=== PATIENT | male | born 2000 | race Hispanic/Latino ===

== ENCOUNTER 2021-07-11 20:05 | Emergency (ER) | payer BC ==
--- OUTSIDE RECORDS SUMMARY | 2021-07-11 20:08 | XMS REPORT | Continuity of Care Document ---
:2000 Author Organization [facility] t Address [address] [place] [address] [address] [place] [address] Care Team Providers Name Role Phone Lab, Fam Pob I Attending Clinician Unavailable [employer] Attending Clinician FREEDOM Attending Clinician Unavailable Payers Payer Name Policy Type Policy Number Effective Date Expiration Date S ource Problems This patient has no known problems. Allergies, Adverse Reactions, Alerts Allergy Allergy Status Severity Reaction(s) Onset Inactive Treating Comm ents Source Name Type Date Date Clinician NO KNOWN Drug Active Univers ALLERGIE Class ity of S [facility] Social History Social Habit Start Date Stop Date Quantity Comments Source Exposure to Not sure [facility] SARS-CoV-2 (event) [facility] Sex Assigned At [birth year] [facility] 00:00:00 00:00:00 [facility] Smoking Status Start Date Stop Date Source Unknown if ever smoked [facility] Medications This patient has no known medications. Procedures This patient has no known procedures. Encounters Start End Encounter Admission Attending Care Care Encounter Source Date/Time Date/Time Type Type Clinicians Facility Department ID 2020-11-23 2020-11-23 Laboratory Lab, [facility] Fam Pob I [facility] 1.2. [id number] Univers 07:53:30 08:13:30 Only Nani Johnson [facility] [id number] chastity [facility] [id number] Karl as Devon [id number] [address] 2020-11-23 2020-11-23 Outpatient R FREEDOM [facility] [id number] Univers 08:00:00 08:00:00 NANI ity o [facility] Results This patient has no known results.
--- NOTE | 2021-07-11 23:11 | EDPHYS ---
Physician Documentation [facility] Name: Chico Covington Age: 21 yrs Sex: Male : 2000 Arrival Date: 07/11/2021 Time: 20:35 Bed 12 Private MD: ED Physician Francis Byrd HPI: 07/11 22:45 This 21 yrs old Male presents to ER via Ambulatory with complaints of Hand cp Injury. 22:45 The patient or guardian reports injury, pain. The complaints affect the proximal left cp fifth metacarpal. Context: resulted from using own fist to strike, a table. Onset: The symptoms/episode began/occurred 2-3 weeks ago. Associated signs and symptoms: Pertinent negatives: cyanosis distally, decreased sensation distally. Severity of symptoms: in the emergency department the symptoms are unchanged, despite home interventions. Historical: - Allergies: 21:08 No Known Allergies; ab2 - Home Meds: 21:08 None [Active]; ab2 - PMHx: 21:08 None; ab2 - PSHx: 21:08 None; ab2 - Immunization history:: Adult Immunizations up to date. - Social history:: Smoking status: Reported history of juuling and/or vaping. ROS: 22:50 MS/extremity: Positive for pain, swelling, tenderness, of the left hand and left wrist. cp 22:50 Constitutional: Negative for body aches, chills, fever, poor PO intake. cp 22:50 Respiratory: Negative for cough, shortness of breath, wheezing. 22:50 Abdomen/GI: Negative for abdominal pain, nausea, vomiting, and diarrhea. 22:50 Neuro: Negative for altered mental status, headache, numbness, weakness. 22:50 All other systems are negative. Exam: 22:55 Constitutional: The patient appears in no acute distress, alert, awake, comfortable, cp non-toxic, well developed, well nourished. 22:55 Musculoskeletal/extremity: Extremities: grossly normal except: noted in the base of cp left fifth metacarpal: pain, swelling, tenderness, There is no evidence of decreased ROM, ROM: full active range of motion, in the left hand and left wrist, Perfusion: the extremity is normally perfused throughout, the left hand Sensation intact. Vital Signs: 21:09 BP 125 / 85; Pulse 87; Resp 17; Temp 97.2(TE); Pulse Ox 99% on R/A; Weight 122.47 kg; ab2 Height 5 ft. 10 in. (177.80 cm); Pain 8/10; 22:37 BP 130 / 78 RA Sitting (auto/reg); Pulse 79 MON; Resp 18 S; Temp 98.5(O); Pulse Ox 100% tk1 ; Pain 0/10; 21:09 Body Mass Index 38.74 (122.47 kg, 177.80 cm) ab2 Procedures: 23:20 Splinting: Splint applied to left hand and left wrist using Orthoglass splint, ulna cp gutter type. applied by tech. Examined by me, post splint application: neurovascular intact, Patient tolerated well. MDM: 22:39 Patient medically screened. susy 23:10 Data reviewed: vital signs, nurses notes, radiologic studies, plain films. cp 23:10 Differential diagnosis: dislocation, closed fracture, contusion. Test interpretation: cp by ED physician or midlevel provider: plain radiologic studies. Counseling: I had a detailed discussion with the patient and/or guardian regarding: the historical points, exam findings, and any diagnostic results supporting the discharge/admit diagnosis, radiology results, the need for outpatient follow up, for definitive care, a hand specialist, to return to the emergency department if symptoms worsen or persist or if there are any questions or concerns that arise at home. Response to treatment: the patient's symptoms have markedly improved after treatment, and as a result, I will discharge patient. 07/11 21:10 Order name: XRAY Hand LEFT 3 View [facility] 07/11 21:10 Order name: XRAY Wrist LEFT 3 view [facility] 07/11 23:08 Order name: Splint - Ulnar Gutter: extend to proximal forearm; Complete Time: 23:24 cp Administered Medications: No medications were administered Disposition Summary: 07/11/21 23:10 Discharge Ordered Location: Home cp Problem: new cp Symptoms: have improved cp Condition: Stable cp Diagnosis - Displaced fracture of base of fifth metacarpal bone, left hand, initial encounter cp for closed fracture Followup: cp - With: Rio Garnica MD - When: 2 - 3 days - Reason: Recheck today's complaints Discharge Instructions: - Discharge Summary Sheet cp - Boxer's Fracture cp Forms: - Medication Reconciliation Form cp - Thank You Letter cp - Antibiotic Education cp - Prescription Opioid Use cp Prescriptions: - Ibuprofen 800 mg Oral Tablet - take 1 tablet by ORAL route every 8 hours As needed take with food; 30 tablet; cp Refills: 0, Product Selection Permitted Signatures: Dispatcher [employer] Francis Powell, Francis Valadez MD, cha, PA PA cp Bleininger, Alexis ab2
--- NOTE | 2021-07-11 23:11 | ER ---
Nurse's Notes [facility] Name: Chico Covington Age: 21 yrs Sex: Male : 2000 Arrival Date: 07/11/2021 Time: 20:35 Bed 12 Private MD: Diagnosis: Displaced fracture of base of fifth metacarpal bone, left hand, initial encounter for closed fracture Presentation: 07/11 21:07 Chief complaint: Patient states: "2 or 3 weeks ago I got mad at my video game and I ab2 punched my desk really hard and my hand and wrist have been hurting ever since." Pt c/o left hand and wrist. Coronavirus screen: Vaccine status: Patient reports being unvaccinated. Client denies travel out of the [place] in the last 14 days. At this time, the client does not indicate any symptoms associated with coronavirus-19. Ebola Screen: Patient negative for fever greater than or equal to 101.5 degrees Fahrenheit, and additional compatible Ebola Virus Disease symptoms Patient denies exposure to infectious person. Patient denies travel to an Ebola-affected area in the 21 days before illness onset. No symptoms or risks identified at this time. Initial Sepsis Screen: Does the patient meet any 2 criteria? No. Patient's initial sepsis screen is negative. Does the patient have a suspected source of infection? No. Patient's initial sepsis screen is negative. Risk Assessment: Do you want to hurt yourself or someone else? Patient reports no desire to harm self or others. Onset of symptoms is unknown. 21:07 Method Of Arrival: Ambulatory ab2 21:07 Acuity: YING 4 ab2 Triage Assessment: 21:08 General: Appears in no apparent distress. comfortable, Behavior is calm, cooperative, ab2 appropriate for age. Pain: Complains of pain in left hand Pain currently is 8 out of 10 on a pain scale. Neuro: Level of Consciousness is awake, alert, obeys commands, Oriented to person, place, time, situation, Appropriate for age. Respiratory: Airway is patent Respiratory effort is even, unlabored, Respiratory pattern is regular, symmetrical. Historical: - Allergies: 21:08 No Known Allergies; ab2 - Home Meds: 21:08 None [Active]; ab2 - PMHx: 21:08 None; ab2 - PSHx: 21:08 None; ab2 - Immunization history:: Adult Immunizations up to date. - Social history:: Smoking status: Reported history of juuling and/or vaping. Screenin:37 Abuse screen: Denies threats or abuse. Denies injuries from another. Nutritional tk1 screening: No deficits noted. Tuberculosis screening: No symptoms or risk factors identified. Fall Risk None identified. Assessment: 22:37 General: Appears comfortable, obese, well groomed, well developed, well nourished, tk1 Behavior is calm, cooperative, appropriate for age. Pain: Denies pain. Neuro: No deficits noted. Cardiovascular: No deficits noted. Respiratory: Airway is patent Respiratory effort is even, unlabored, Respiratory pattern is regular, symmetrical. GI: No deficits noted. No signs and/or symptoms were reported involving the gastrointestinal system. : No deficits noted. No signs and/or symptoms were reported regarding the genitourinary system. EENT: No deficits noted. No signs and/or symptoms were reported regarding the EENT system. Derm: No deficits noted. No signs and/or symptoms reported regarding the dermatologic system. Musculoskeletal: Range of motion: limited in MCP of left little finger, MCP of left ring finger, MCP of left middle finger and MCP of left index finger Swelling present in dorsum of left hand Reports pain in left hand with movement. 23:33 Reassessment: D/C per PA order. Discharge/Prescription instructions given to patient. tk1 Verbalized understanding. Vital Signs: 21:09 BP 125 / 85; Pulse 87; Resp 17; Temp 97.2(TE); Pulse Ox 99% on R/A; Weight 122.47 kg; ab2 Height 5 ft. 10 in. (177.80 cm); Pain 8/10; 22:37 BP 130 / 78 RA Sitting (auto/reg); Pulse 79 MON; Resp 18 S; Temp 98.5(O); Pulse Ox 100% tk1 ; Pain 0/10; 21:09 Body Mass Index 38.74 (122.47 kg, 177.80 cm) ab2 ED Course: 20:35 Patient arrived in ED. es 21:08 Triage completed. ab2 21:09 Arm band placed on right wrist. ab2 21:59 XRAY Hand LEFT 3 View In Process Unspecified. EDMS 21:59 XRAY Wrist LEFT 3 view In Process Unspecified. EDMS 22:29 Francis Singh PA is PHCP. cp 22:29 Francis Byrd MD is Attending Physician. cp 22:37 Szuy Munoz is Primary Nurse. tk1 22:37 Patient has correct armband on for positive identification. Bed in low position. Call tk1 light in reach. 22:37 Patient did not have IV access during this emergency room visit. tk1 22:37 No provider procedures requiring assistance completed. tk1 23:09 Rio Garnica MD is Referral Physician. cp 23:24 Orthoglass splint: Ulnar gutter/Boxer splint applied on left forearm. ds4 Administered Medications: No medications were administered Outcome: 22:37 Discharged to home ambulatory. tk1 22:37 Condition: stable 22:37 Discharge instructions given to patient, Instructed on discharge instructions, follow up and referral plans. medication usage, Demonstrated understanding of instructions, follow-up care, medications. 23:10 Discharge ordered by MD. cp 23:38 Patient left the ED. tk1 Signatures: Dispatcher [employer] EDNE Jenny Nova Donovan ds4 Francis Singh PA PA cp Suzy Munoz tk1 Tito Mancuso2
[2021-07-12 04:24] VITALS: BP 130/78; TEMP 98.5; O2SAT 100
--- NOTE | 2021-07-12 08:49 | RAD REPORT ---
EXAM DESCRIPTION: RAD - Wrist Left 3 View - 07/11/2021 9:57 pm CLINICAL HISTORY: Left wrist pain status post injury FINDINGS: A mildly displaced subacute oblique fracture proximal fifth metacarpal which extends intra -articularly. There is a small amount of callus No dislocation
--- NOTE | 2021-07-12 08:50 | RAD REPORT ---
EXAM DESCRIPTION: RAD -Hand Left 3 View - 07/11/2021 9:58 pm CLINICAL HISTORY: Left hand pain status post injury FINDINGS: A mildly displaced subacute oblique fracture proximal fifth metacarpal which extends intra -articularly. There is a small amount of callus No dislocation
== END 2021-07-11 23:38 | disposition home or self-care (01) ==
LOC: ER 20:05
PROC: 2W3DX1Z Immobilization of Left Lower Arm using Splint (ICD-10-PCS; principal; 2021-07-11)
DX: S62.317A Displaced fracture of base of fifth metacarpal bone, left hand, initial encounter for closed fracture (principal); W22.8XXA Striking against or struck by other objects, initial encounter
CPT/HCPCS: 99283

== ENCOUNTER 2022-10-16 14:42 | Emergency (ER) | payer BC ==
--- OUTSIDE RECORDS SUMMARY | 2022-10-16 14:45 | XMS REPORT | Continuity of Care Document ---
:2000 Author Organization [facility] t Address [address] [place] [address] [address] [place] [address] Care Team Providers Name Role Phone SEVERO PUCKETT Attending Clinician Unavailable CORNELIA MEDEL Attending Clinician Unavailable Lab, Adc Fam Pob I Attending Clinician Unavailable Nani Prajapati Attending Clinician NANI LOJA Attending Clinician Unavailable Payers Payer Name Policy Type Policy Number Effective Date Expiration Date S [facility] 2 [id number] 2022 00:00:00 Problems This patient has no known problems. Allergies, Adverse Reactions, Alerts Allergy Allergy Status Severity Reaction(s) Onset Inactive Treating Comm ents Source Name Type Date Date Clinician NO KNOWN Drug Active Univers ALLERGIE Class ity of [facility] Social History Social Habit Start Date Stop Date Quantity Comments Source Exposure to Not sure [facility] SARS-CoV-2 (event) [facility] Sex Assigned At [birth year] [facility] 00:00:00 00:00:00 [facility] Smoking Status Start Date Stop Date Source Unknown if ever smoked [facility] Medications This patient has no known medications. Procedures This patient has no known procedures. Encounters Start End Encounter Admission Attending Care Care Encounter Source Date/Time Date/Time Type Type Clinicians Facility Department ID 2022-11-03 2022-11-03 Outpatient DESTINY PUCKETT [id number] 15:45:00 15:45:00 SEVERO christie 2022-10-16 2022-10-16 Outpatient DESTINY MEDEL [id number] 00:00:00 00:00:00 CORNELIA christie 2020-11-23 2020-11-23 Laboratory Lab, Adc Fam Pob I [facility] 1.2. [id number] Univers 07:53:30 08:13:30 Only Nani Loja [id number] [place] [id number] Karl as Teresitaio [phone] [address] 2020-11-23 2020-11-23 Outpatient R FREEDOM [facility] [id number] [facility] 08:00:00 08:00:00 NANI mor[facility]aya [facility] Results This patient has no known results.
--- NOTE | 2022-10-16 15:14 | RAD REPORT ---
EXAM DESCRIPTION: RAD - Knee Right 3 View - 10/16/2022 3:10 pm CLINICAL HISTORY: PAIN COMPARISON: <Comparisons> TECHNIQUE: Right knee, 3 views. FINDINGS: No fracture, dislocation or periosteal reaction.No joint effusion seen. No joint space kendell rowing. No soft tissue abnormality. Clinical concerns for internal derangement or occult bony injury could be further assessed with MR im aging. IMPRESSION: Negative right knee.
--- NOTE | 2022-10-16 15:24 | ER ---
Nurse's Notes [facility] Name: Chico Covington Age: 22 yrs Sex: Male : 2000 Arrival Date: 10/16/2022 Time: 14:42 Bed IW2 Private MD: Celina Bruce Diagnosis: Pain in right knee Presentation: 10/16 15:05 Chief complaint: Patient states: R knee pain for months. Pain and stiffness this week. ll1 Ebola Screen: Patient denies travel to an Ebola-affected area in the 21 days before illness onset. Initial Sepsis Screen: Does the patient meet any 2 criteria? No. Patient's initial sepsis screen is negative. Does the patient have a suspected source of infection? No. Patient's initial sepsis screen is negative. Risk Assessment: Do you want to hurt yourself or someone else? Patient reports no desire to harm self or others. 15:05 Method Of Arrival: Ambulatory ll1 15:05 Acuity: YING 4 ll1 15:11 Coronavirus screen: Vaccine status: Patient reports being unvaccinated. Client denies ll1 travel out of the [place] in the last 14 days. At this time, the client does not indicate any symptoms associated with coronavirus-19. Onset of symptoms was April 13, 2022. Triage Assessment: 15:13 General: Appears in no apparent distress. Behavior is calm, cooperative, appropriate ll1 for age. Pain: Complains of pain in R knee Quality of pain is described as aching. Musculoskeletal: Circulation, motion, and sensation intact. Capillary refill < 3 seconds. Historical: - Allergies: 15:13 No Known Allergies; ll1 - PMHx: 15:13 None; ll1 - PSHx: 15:13 None; ll1 - Immunization history:: Client reports having NOT received the Covid vaccine. - Social history:: Smoking status: Reported history of juuling and/or vaping. Screenin:42 [facility] ED Fall Risk Assessment (Adult) Score/Fall Risk Level 0 - 2 = Low Risk ll1 Oriented to surroundings, Maintained a safe environment, Educated pt \T\ family on fall prevention, incl call for assistance when getting out of bed, Hourly rounding (assess needs \T\ fall precautionary measures) done. Abuse screen: Denies threats or abuse. Nutritional screening: No deficits noted. Tuberculosis screening: No symptoms or risk factors identified. Assessment: 15:42 Reassessment: No changes from previously documented assessment. Patient and/or family ll1 updated on plan of care and expected duration. Pain level reassessed. Patient is alert, oriented x 3, equal unlabored respirations, skin warm/dry/pink. Vital Signs: 15:11 Pulse 82; Resp 18; Temp 98.1; Pulse Ox 98% ; Weight 136.08 kg; Height 5 ft. 10 in. ; ll1 Pain 3/10; 15:11 Body Mass Index 43.05 (136.08 kg, 177.8 cm) ll1 15:11 Pain Scale: Adult ll1 ED Course: 14:43 Patient arrived in ED. am2 14:43 Celina Bruce is Private Physician. am2 14:43 Nallely Kwan FNP-C is [facility]. kb 14:43 Francis Byrd MD is Attending Physician. kb 15:05 Triage completed. ll1 15:05 Arm band placed on. ll1 15:11 Knee Right 3 View XRAY In Process Unspecified. EDMS 15:42 Patient has correct armband on for positive identification. Bed in low position. Call ll1 light in reach. Cardiac monitoring not applicable on this patient. 15:42 No provider procedures requiring assistance completed. Patient did not have IV access ll1 during this emergency room visit. Administered Medications: No medications were administered Medication: 15:42 VIS not applicable for this client. ll1 Outcome: 15:24 Discharge ordered by . kb 15:42 Discharged to home ambulatory. ll1 15:42 Condition: stable 15:42 Discharge instructions given to patient, Instructed on discharge instructions, follow up and referral plans. medication usage, Demonstrated understanding of instructions, follow-up care, medications, Prescriptions given X 1. 15:42 Patient left the ED. ll1 Signatures: Dispatcher [employer] EDAR Nallely Kwan FNP-C FNP-Ckb Moreno, Amanda am2 Jarrell Rondon RN RN ll1 Corrections: (The following items were deleted from the chart) 15:13 15:05 Chief complaint: Patient states: R knee pain ll1 ll1
--- NOTE | 2022-10-16 15:24 | EDPHYS ---
Physician Documentation [facility] Name: Chico Covington Age: 22 yrs Sex: Male : 2000 Arrival Date: 10/16/2022 Time: 14:42 Bed IW2 Private MD: Celina Bruce ED Physician Francis Byrd HPI: 10/16 17:48 This 22 yrs old Male presents to ER via Ambulatory with complaints of Knee kb Pain. 17:48 The patient presents with pain. The complaints affect the right knee. Context: The kb problem was sustained at home, resulted from an unknown cause, the patient can fully bear weight, the patient is able to ambulate. Onset: The symptoms/episode began/occurred 5 day(s) ago. Modifying factors: The symptoms are alleviated by nothing. the symptoms are aggravated by movement. Associated signs and symptoms: The patient has no apparent associated signs or symptoms. Treatment prior to arrival includes: no previous treatment. Severity of symptoms: At their worst the symptoms were moderate, in the emergency department the symptoms are unchanged. The patient has not experienced similar symptoms in the past. The patient has not recently seen a physician. 17:49 Pt states she does a lot of climbing and bending at work. Went on vacation and laid kb around for a few days and when he went back to moving and bending he started having knee pain. Historical: - Allergies: 15:13 No Known Allergies; ll1 - PMHx: 15:13 None; ll1 - PSHx: 15:13 None; ll1 - Immunization history:: Client reports having NOT received the Covid vaccine. - Social history:: Smoking status: Reported history of juuling and/or vaping. ROS: 17:47 Constitutional: Negative for fever, chills, and weight loss. kb 17:47 MS/extremity: Positive for pain, of the right knee. 17:47 All other systems are negative. Exam: 17:47 Constitutional: This is a well developed, well nourished patient who is awake, alert, kb and in no acute distress. Head/Face: Normocephalic, atraumatic. ENT: Moist Mucous membranes Cardiovascular: Regular rate and rhythm with a normal S1 and S2. No gallops, murmurs, or rubs. No pulse deficits. Respiratory: Respirations even and unlabored. No increased work of breathing. Talking in full sentences Abdomen/GI: Soft, non-tender. No distention Skin: Warm, dry with normal turgor. Normal color. Neuro: Awake and alert, GCS 15, oriented to person, place, time, and situation. Moves all extremities. Normal gait. 17:47 Musculoskeletal/extremity: Extremities: grossly normal except: noted in the right knee: pain, ROM: intact in all extremities, Circulation is intact in all extremities. Sensation intact. Weight bearing: able to fully bear weight. Vital Signs: 15:11 Pulse 82; Resp 18; Temp 98.1; Pulse Ox 98% ; Weight 136.08 kg; Height 5 ft. 10 in. ; ll1 Pain 3/10; 15:11 Body Mass Index 43.05 (136.08 kg, 177.8 cm) ll1 15:11 Pain Scale: Adult ll1 MDM: 14:54 Patient medically screened. kb 17:47 Data reviewed: vital signs, nurses notes. kb 17:48 Differential diagnosis: dislocation, closed fracture, contusion, tendonitis, strain. kb Counseling: I had a detailed discussion with the patient and/or guardian regarding: the historical points, exam findings, and any diagnostic results supporting the discharge/admit diagnosis, radiology results, the need for outpatient follow up, a family practitioner, a orthopedic surgeon, to return to the emergency department if symptoms worsen or persist or if there are any questions or concerns that arise at home. 10/16 14:55 Order name: Knee Right 3 View XRAY; Complete Time: 15:15 kb Administered Medications: No medications were administered Disposition Summary: 10/16/22 15:24 Discharge Ordered Location: Home kb Condition: Stable kb Diagnosis - Pain in right knee kb Followup: kb - With: Emergency Department - When: As needed - Reason: Worsening of condition Followup: kb - With: Private Physician - When: 2 - 3 days - Reason: Recheck today's complaints, Continuance of care, Re-evaluation by your physician Discharge Instructions: - Discharge Summary Sheet kb - Musculoskeletal Pain kb - Acute Knee Pain, Adult, [id number] kb Forms: - Medication Reconciliation Form kb - Thank You Letter kb - Antibiotic Education kb - Prescription Opioid Use kb - [email or web address] kb - Work release form em1 Prescriptions: - Diclofenac Sodium 75 mg Oral tablet,delayed release (DR/EC) - take 1 tablet by ORAL route 2 times per day As needed; 30 tablet; Refills: 0, kb Product Selection Permitted Signatures: Dispatcher [employer] Nallely Elise FNP-C FNP-Jarrell Dean, RN RN ll1
[2022-10-16 16:04] VITALS: TEMP 98.1; O2SAT 98
== END 2022-10-16 15:42 | disposition home or self-care (01) ==
LOC: ER 14:42
DX: M25.561 Pain in right knee (principal)
CPT/HCPCS: 99283